=== PATIENT | female | born 1950 | race Hispanic/Latino ===

== ENCOUNTER → 2017-11-08 | Day surgery (SDC) | payer OTHER ==
[2017-11-06 12:05] LABS: BASOPHILS % 0.3 % (0.0-1.0); EOSINOPHILS # (AUTO) 0.2 (0.0-0.4); EOSINOPHILS % 2.9 % (0.0-6.0); HEMATOCRIT 43.5 % (34.2-44.1); HEMOGLOBIN 14.4 g/dL (12.0-16.0); LYMPHOCYTES # (AUTO) 2.4 (1.0-3.2); LYMPHOCYTES % 32.1 % (18.0-39.1); MEAN CORPUSCULAR HEMOGLOBIN 31.6 pg (28-32); MEAN CORPUSCULAR HGB CONC 33.1 g/dL (31-35); MEAN CORPUSCULAR VOLUME 95.6 fL (81-99); MONOCYTES # (AUTO) 0.7 (0.2-0.8); MONOCYTES % 8.8 % (4.4-11.3); NEUTROPHILS # (AUTO) 4.2 (2.1-6.9); NEUTROPHILS % 55.6 % (38.7-80.0); PLATELET COUNT 264 x10e3/uL (140-360); RED BLOOD COUNT 4.55 x10e6/uL (3.6-5.1); RED CELL DISTRIBUTION WIDTH 12.3 % (11.7-14.4)
--- NOTE | 2017-11-06 12:20 | Diagnostic Imaging Report ---
PROCEDURE:CHEST 2 VIEWS TECHNIQUE:PA and lateral views chest INDICATION:Preoperative evaluation for carpal tunnel surgery. COMPARISON:[facility], , CHEST 2 VIEWS, 01/16/2017, 13:08. FINDINGS: Lungs are clear and symmetrically inflated. No pleural effusions. Normal heart size, mediastinal contour and pulmonary vasculature. Intact skeleton. CONCLUSION: No acute abnormality or interval change from December 2016. Dictated by: Prabhu Perry M.D. on 11/06/2017 at 12:29 Electronically approved by: Prabhu Perry M.D. on 11/06/2017 at 12:29
[~2017-11-08] MED LIST: BUPIVACAINE HCL 0.5% INJ 30 ML VIAL INJ ONE; CEFAZOLIN SOD 2 GM/D5W 50ML 50 ML IV ONE; DEXAMETHASONE SOD PHOS INJ 4 MG/ML VIAL ONE; EPHEDRINE SULFATE INJ 50 MG/10 ML SYR ONE; FENTANYL CITRATE/PF 100MCG/2 ML INJ ONE; LIDOCAINE HCL 2% LOCAL INJ 5 ML SDV VIAL INJ ONE; LOSARTAN POTASS25 MG PO; MIDAZOLAM HCL 2 MG/2 ML VIAL ONE; NEXIUM20 MG PO; ONDANSETRON HCL INJ 2 MG/ML VIAL ONE; PROPOFOL IV EMULSION 10 MG/ML 20 ML VIAL ONE; SEVOFLURANE INHAL SOLN 250 ML PEN BTL ONE; SIMVASTATIN20 MG PO; TRAMADOL-ACETAMI1 EA PO; TYLENOL WITH C1 EACH PO; [UNRECOGNIZED DRUG - OTHER] PO
--- OUTSIDE RECORDS SUMMARY | 2017-11-08 05:16 | XMS REPORT ---
[facility] Address Unknown Phone Unavailable Care Team Providers Care Aperture Mask Etcher Name Role Phone ASHWINI RICKS Unavailable Unavailable Problems This patient has no known problems. Allergies, Adverse Reactions, Alerts This patient has no known allergies or adverse reactions. Medications This patient has no known medications. Results Test Description Test Time Test Comments Text Results Atomic Results Result Comments CHEST 2 VIEWS [place] [address] Patient Name: NYA CRONIN MR #: [id number] : 1950 Age/Sex: 67/F Req #: [id number] Adm Physician: Ordered by: ASHWINI RICKS MD Report #: [id number] Location: OR Room/Bed: Procedure: [id number] DX/CHEST 2 VIEWS Exam Date: 11/06/17 Exam Time: 1200 REPORT STATUS: Signed PROCEDURE: CHEST 2 VIEWS TECHNIQUE: PA and lateral views chest INDICATION: Preoperative evaluation for carpal tunnel surgery. COMPARISON: [facility], , CHEST 2 VIEWS, 01/16, 13:08. FINDINGS: Lungs are clear and symmetrically inflated. No pleural effusions. Normal heart size, mediastinal contour and pulmonary vasculature. Intact skeleton. CONCLUSION: No acute abnormality or interval change from December 2016. Dictated by: Watson Perry M.D. on 11/06/2017 at 12:29 Electronically approved by: Watson Perry M.D. on 11/06/2017 at 12:29 Dictated By: WATSON PERRY MD 1229 Transcribed By: MARY JO on 11/06/17 1229 COPY TO: ASHWINI RICKS MD
--- NOTE | 2017-11-08 12:43 | Operative Report ---
DATE OF PROCEDURE: November 08, 2017 PREOPERATIVE DIAGNOSIS: Right carpal tunnel syndrome. POSTOPERATIVE DIAGNOSIS: Right carpal tunnel syndrome. OPERATION/PROCEDURE PERFORMED: Right carpal tunnel release. ANESTHESIA: General endotracheal intubation anesthesia. IV FLUIDS: Per anesthesia record. DESCRIPTION OF PROCEDURE: Ms. Hatch was taken to the operating room and placed in supine position on the operating table. Following induction of general anesthesia as well as endotracheal intubation, the patient's right upper extremity was examined under anesthesia. She was found to have a normal-appearing hand. There were no gross abnormalities. The patient's upper extremity was prepped and draped in standard surgical fashion. The case was begun by creating an incision in the palm of the hand. This incision was carried through the skin only. Blunt dissection was used to deepen this into the level of the transverse carpal ligament. The distal edge of the transverse carpal ligament was identified and a hemostat was placed beneath the transverse carpal ligament. The transverse carpal ligament was then divided in line with the skin incision. The floor of carpal canal was evaluated and found to have no abnormalities. The tourniquet was deflated and hemostasis was obtained prior to closing the wound. The wound was closed in a single layer fashion. Sterile dressings were applied. The patient was then awakened and taken to the postanesthesia care unit in stable condition. Job#: [id number] FAZAL
== END | disposition home or self-care (01) ==
LOC: OR 05:13
PROVIDERS: ATTEND Specialist
DX: G56.01 Carpal tunnel syndrome, right upper limb (principal); I10 Essential (primary) hypertension; E78.5 Hyperlipidemia, unspecified; K21.9 Gastro-esophageal reflux disease without esophagitis; F17.210 Nicotine dependence, cigarettes, uncomplicated; Z01.810 Encounter for preprocedural cardiovascular examination; Z01.812 Encounter for preprocedural laboratory examination; Z01.818 Encounter for other preprocedural examination
CPT/HCPCS: 36415; 64721; 71046; 85025; 93005; J1100; J2001; J2250; J2405

== ENCOUNTER 2019-02-27 13:11 | Emergency (ER) | payer MEDICARE, OTHER ==
[~2019-02-27] VITALS: Ht 152.4 cm; Wt 92.5 kg
[~2019-02-27 13:11] MED LIST changes: -BUPIVACAINE HCL 0.5% INJ 30 ML VIAL INJ ONE; -CEFAZOLIN SOD 2 GM/D5W 50ML 50 ML IV ONE; -DEXAMETHASONE SOD PHOS INJ 4 MG/ML VIAL ONE; -EPHEDRINE SULFATE INJ 50 MG/10 ML SYR ONE; -FENTANYL CITRATE/PF 100MCG/2 ML INJ ONE; -LIDOCAINE HCL 2% LOCAL INJ 5 ML SDV VIAL INJ ONE; -MIDAZOLAM HCL 2 MG/2 ML VIAL ONE; -ONDANSETRON HCL INJ 2 MG/ML VIAL ONE; -PROPOFOL IV EMULSION 10 MG/ML 20 ML VIAL ONE; -SEVOFLURANE INHAL SOLN 250 ML PEN BTL ONE
--- OUTSIDE RECORDS SUMMARY | 2019-02-27 13:14 | XMS REPORT | Clinical Summary ---
Author Author [facility] Address Unknown Phone Unavailable Care Team Providers Care Senior Actuarial Analyst Name Role Phone Jono Wynne MD PCP Allergies No Known Allergies Medications End Date Status Medication Sig Dispensed Refills Start Date Active propranolol (INDERAL) 10 Take 10 mg by 0 MG tablet mouth 3 (three) times a day. Active simvastatin (ZOCOR) 20 MG Take 20 mg by 0 tablet mouth nightly. Active carbidopa-levodopa Take 1 tablet 0 (SINEMET) 25-100 mg per by mouth 3 tablet (three) times a day. Active pantoprazole (PROTONIX) Take 40 mg by 0 40 MG EC tablet mouth daily. Active Problems Not on file Encounters Care Team Description Date Type Specialty Frank Wan MD Biliary cyst (Primary Dx); Abnormal liver diagnostic imaging 06/26/2018 Office Visit Hepatology after 02/26/2018 Social History Date Tobacco Use Types Packs/Day Years Used Current Every Day Smoker Smokeless Tobacco: Never Used Comments: 1 pack a week Alcohol Use Drinks/Week oz/Week Comments Yes social drinker Sex Assigned at Date Recorded Not on file Industry Job Start Date Occupation Not on file Not on file Not on file Travel End Travel History Travel Start No recent travel history available. Last Filed Vital Signs Time Taken Vital Sign Reading 06/26/2018 11:07 AM CDT Blood Pressure 119/62 06/26/2018 11:07 AM CDT Pulse 67 06/26/2018 11:07 AM CDT Temperature 36.3 C (97.3 F) - Respiratory Rate - 06/26/2018 11:07 AM CDT Oxygen Saturation 96% - Inhaled Oxygen - Concentration 06/26/2018 11:07 AM CDT Weight 89.5 kg (197 lb 6.4 oz) 06/26/2018 11:07 AM CDT Height 154.9 cm (5' 1") 06/26/2018 11:07 AM CDT Body Mass Index 37.3 Plan of Treatment Health Maintenance Due Date Last Done Comments BREAST CANCER SCREENING 2001 COLON CANCER SCREENING 2001 SHINGLES VACCINES (#1) 2001 65+ PNEUMOCOCCAL VACCINE 2016 (1 of 2 - PCV13) PNEUMOCOCCAL 2016 POLYSACCHARIDE VACCINE AGE 65 AND OVER INFLUENZA VACCINE 05/02/2019 Procedures Comments Procedure Name Priority Date/Time Associated Diagnosis CARCINOEMBRYONIC ANTIGEN Routine 06/26/2018 Biliary cyst (CEA) 11:59 AM CDT PROTHROMBIN TIME WITH INR Routine 06/26/2018 Biliary cyst 11:59 AM CDT HEPATITIS C ANTIBODY Routine 06/26/2018 Biliary cyst 11:59 AM CDT HEPATITIS B CORE ANTIBODY Routine 06/26/2018 Biliary cyst TOTAL 11:59 AM CDT GGT Routine 06/26/2018 Biliary cyst 11:59 AM CDT COMPREHENSIVE METABOLIC Routine 06/26/2018 Biliary cyst PANEL 11:59 AM CDT CBC WITH PLATELET AND Routine 06/26/2018 Biliary cyst DIFFERENTIAL 11:59 AM CDT CANCER ANTIGEN 19-9 Routine 06/26/2018 Biliary cyst 11:59 AM CDT BILE ACIDS, TOTAL Routine 06/26/2018 Biliary cyst 11:59 AM CDT ALPHA FETOPROTEIN Routine 06/26/2018 Biliary cyst 11:59 AM CDT after 02/26/2018 Results * Hepatitis C antibody (06/26/2018 11:59 AM CDT) Hepatitis C Ab NON-REACTIVE NON-REACTIVE [facility] [place] Signal/cutoff 0.08 <1.00 [facility] [place] Specimen Blood Resulting Agency Comment Performing Organization Information: Site ID: [id number] Name: [facility] Address: [address] [place] [phone] Director: Elda North Performing Organization Address City/State/Zipcode Phone Number [facility] [address] [place] [address] * Cancer antigen 19-9 (06/26/2018 11:59 AM CDT) [facility] CA 19-9 52 (H) <34 U/mL [facility] Comment: [facility]ICS-[place] This test was performed using ING II the Siemens chemiluminescent method. Values obtained from different assay methods cannot be used interchangeably. CA 19-9 levels, regardless of value, should not be interpreted as absolute evidence of the presence or absence of disease. Specimen Blood Resulting Agency Comment Performing Organization Information: Site ID: [id number] [facility]: [facility] Address: [address] [place] [phone] Director: Dr. Frank Baires Performing Organization Address [facility] Cent[facility]ode Phone Number [facility] [address] II * Bile acids, total (06/26/2018 11:59 AM CDT) [facility] Bile acids, 10 0 - 19 umol/L [facility] total DIAGNOSTICS/[place]SE [place] Specimen Blood Resulting Agency Comment Performing Organization Information: Site ID: AMD Name: [facility] Address: [address] [place] [phone] Director: Biju Balderas M.D.,PhD Performing Organization Address [facility]/Zipcode Phone Number [facility] [address] [place] [address] [place] * Alpha fetoprotein (06/26/2018 11:59 AM CDT) [facility] Alpha 4.0 ng/mL [facility] fetoprotein Comment: [facility] Reference Range: <6.1 ING II The use of AFP as a tumor marker in females is not recommended. This test was performed using the Annika Candia chemiluminescent method. Values obtained from different assay methods cannot be used interchangeably. AFP levels, regardless of value, should not be interpreted as absolute evidence of the presence or absence of disease. Specimen Blood Resulting Agency Comment Performing Organization Information: Site ID: IG [facility]: [facility] Address: [address] [place] [phone] Director: Dr. Frank Baires Performing Organization Address City/[facility]/Zipcode Phone Number [employer] [facility] [address] [place] [address] II * Hepatitis B core antibody total (06/26/2018 11:59 AM CDT) Pathologist [facility] Hepatitis B NON-REACTIVE NON-REACTIVE [facility] core total Ab [facility] [place] Specimen Blood Resulting Agency Comment Performing Organization Information: Site ID: A Name: [facility] Address: [address] [place] [phone] Director: Elda North Performing Organization Address [facility] Centercode Phone Number [facility] [address] [address] * Prothrombin time with INR (06/26/2018 11:59 AM CDT) [facility] INR 1.0 [facility] Comment: DIAGNOSTICS Reference [place] Range 0.9-1.1 Moderate-intensity Warfarin Therapy 2.0-3.0 Higher-intensity Warfarin Therapy 3.0-4.0 Prothrombin 10.1 9.0 - 11.5 sec [facility] time Comment: DIAGNOSTICS For more information on this [place] test, go to: http://education.[employer]/faq/RRQ054 Specimen Blood Resulting Agency Comment Performing Organization Information: Site ID: Christine Name: [facility] Address: [address] [place] [phone] Director: Elda North Performing Organization Address [facility] [facility] Centercode Phone Number [facility] [address] [address] * CBC with platelet and differential (06/26/2018 11:59 AM CDT) [facility] WBC 8.3 3.8 - 10.8 [facility] Thousand/uL [facility] [place] RBC 4.61 3.80 - 5.10 [facility] Million/uL [facility] [place] HGB 14.6 11.7 - 15.5 g/dL [facility] [place] HCT 43.7 35.0 - 45.0 % [facility] MCV 94.8 80.0 - 100.0 fL [facility] [place] MCH 31.7 27.0 - 33.0 pg [facility] [place] MCHC 33.4 32.0 - 36.0 g/dL [facility] [place] RDW 12.6 11.0 - 15.0 % [facility] [place] Platelet count 296 140 - 400 [facility] Thousand/uL [facility] MPV 12.0 7.5 - 12.5 fL [facility] [place] Neutrophils, 5,378 1,500 - 7,800 [facility] absolute cells/uL [facility] [place] Lymphocytes, 2,017 850 - 3,900 cells/uL [facility] absolute [facility] [place] Monocytes, 747 200 - 950 cells/uL [facility] absolute [facility] [place] Eosinophils, 116 15 - 500 cells/uL [facility] absolute [facility] [place] Basophils, 42 0 - 200 cells/uL [facility] absolute [facility] [place] Neutrophils 64.8 % [facility] [place] Lymphocytes 24.3 % [facility] [place] Monocytes 9.0 % [facility] [place] Eosinophils 1.4 % [facility] [place] Basophils + RC 0.5 % [facility] [place] Specimen Blood Resulting Agency Comment Performing Organization Information: Site ID: [id number] Name: [facility] Address: [address] [place], [place] [phone] Director: Elda North Performing Organization Address [facility] [facility] Centercowi Phone Number [place] [address] * GGT (06/26/2018 11:59 AM CDT) GGT 47 3 - 65 U/L [facility] Specimen Blood Resulting Agency Comment Performing Organization Information: Site ID: ESTELA Name: [facility] Address: [address] [place] [phone] Director: Elda North Performing Organization Address [facility] [facility] Centercowi Phone Number [place] [address] * Carcinoembryonic antigen (CEA) (06/26/2018 11:59 AM CDT) CEA 3.1 (H) See Note: ng/mL [facility] Comment: DIAGNOSTICS Reference Range: [place] Non-Smoker: <2.5 Smoker: <5.0 This test was performed using the Siemens chemiluminescent method. Values obtained from different assay methods cannot be used interchangeably. CEA levels, regardless of value, should not be interpreted as absolute evidence of the presence or absence of disease. Specimen Blood Resulting Agency Comment Performing Organization Information: Site ID: [id number] Name: [facility] Address: [address] [place] [phone] Director: Elda North Performing Organization Address [facility]/Zipcode Phone Number [facility] [place] [address] [place] [address] * Comprehensive metabolic panel (06/26/2018 11:59 AM CDT) [facility] Glucose 87 65 - 99 mg/dL [facility] Comment: DIAGNOSTICS Fasting [place] reference interval BUN, whole 14 7 - 25 mg/dL [facility] blood [facility] [place] Creatinine 0.69 0.50 - 0.99 mg/dL [facility] Comment: DIAGNOSTICS For patients >49 years of age, [place] the reference limit for Creatinine is approximately 13% higher for people identified as -Icelandic. EGFR Non-Afr. 90 > OR=60 [facility] Icelandic mL/min/1.73m2 [facility] [place] EGFR 104 > OR=60 [facility] Icelandic mL/min/1.73m2 [facility] [place] BUN/creatinine NOT APPLICABLE 6 - 22 (calc) [facility] ratio [facility] [place] Sodium 141 135 - 146 mmol/L [facility] [place] Potassium 4.7 3.5 - 5.3 mmol/L [facility] [place] Chloride 104 98 - 110 mmol/L [facility] [place] CO2 28 20 - 32 mmol/L [facility] [place] Calcium 9.7 8.6 - 10.4 mg/dL [facility] [place] Protein 7.1 6.1 - 8.1 g/dL [facility] [place] Albumin, S 4.3 3.6 - 5.1 g/dL [facility] [place] Globulin, total 2.8 1.9 - 3.7 g/dL [facility] (calc) [facility]ST[facility] [place] Albumin/globuli 1.5 1.0 - 2.5 (calc) [facility] n ratio [facility] [place] Total bilirubin 0.4 0.2 - 1.2 mg/dL [facility] [place] Alkaline 86 33 - 130 U/L [facility] phosphatase [facility] [place] AST 16 10 - 35 U/L [facility] [place] ALT 11 6 - 29 U/L [facility] [place] Specimen Blood Resulting Agency Comment Performing Organization Information: Site ID: RGA Name: [facility] Address: [address] [place] [phone] Director: Elda North Performing Organization Address [facility]/Zipcode Phone Number [facility] [address] [address] after 02/26/2018 Insurance Type Payer Benefit Subscriber ID Effective Phone Address Plan / Dates Group HMO TEXEMIL[employer]APLUS JENNIFERPLUS xxxxxxxxx 2017-Ishan escobedo Advance Directives Patient has advance care planning documents on file. For more information, balta youngblood contact: Masood Holt [address] [place] [address]
--- NOTE | 2019-02-27 14:15 | Diagnostic Imaging Report ---
EXAMINATION: PA and lateral views of the chest. COMPARISON: None CLINICAL HISTORY: Cough, shortness of breath DISCUSSION: Lungs are well-inflated and without focal airspace consolidation, pleural effusion, or pneumothorax. Opacity along the cardiac apex likely reflects prominent epicardial fat. Atherosclerotic calcification of the thoracic aorta. Normal heart size. No pulmonary edema. No acute osseous abnormality. IMPRESSION: No acute cardiopulmonary abnormalities. Signed by: Dr. Andrea Vazquez M.D. on 02/27/2019 2:12 PM
[2019-02-27 16:09] LABS: BASOPHILS % 0.2 % (0.0-1.0); EOSINOPHILS # (AUTO) 0.2 (0.0-0.4); EOSINOPHILS % 1.6 % (0.0-6.0); HEMATOCRIT 44.8 % (34.2-44.1); HEMOGLOBIN 14.3 g/dL (12.0-16.0); LYMPHOCYTES # (AUTO) 1.9 (1.0-3.2); LYMPHOCYTES % 20.8 % (18.0-39.1); MEAN CORPUSCULAR HGB CONC 31.9 g/dL (31-35); MONOCYTES % 10.7 % (4.4-11.3); NEUTROPHILS # (AUTO) 6.1 (2.1-6.9); NEUTROPHILS % 66.4 % (38.7-80.0); PLATELET COUNT 284 x10e3/uL (140-360); RED BLOOD COUNT 4.62 x10e6/uL (3.6-5.1); RED CELL DISTRIBUTION WIDTH 12.8 % (11.7-14.4)
[2019-02-27 16:32] LABS: ALANINE AMINOTRANSFERASE 12 IU/L (0-55); ALBUMIN 3.7 g/dL (3.5-5.0); ALBUMIN/GLOBULIN RATIO 1.1 (0.8-2.0); ALKALINE PHOSPHATASE 93 IU/L (40-150); ANION GAP 10.9 mmol/L (8-16); BLOOD UREA NITROGEN 16 mg/dL (7-26); BUN/CREATININE RATIO 21 (6-25); CALCIUM 9.7 mg/dL (8.4-10.2); CARBON DIOXIDE 27 mmol/L (22-29); CHLORIDE 101 mmol/L (98-107); CREATINE KINASE 54 IU/L (29-168); CREATININE, SERUM 0.77 mg/dL (0.57-1.11); EST GLOMERULAR FILTRATION RATE > 60 ML/MIN (60-); GLUCOSE 84 mg/dL (74-118); POTASSIUM 3.9 mmol/L (3.5-5.1); SODIUM 135 mmol/L (136-145)
--- NOTE | 2019-02-27 18:31 | Diagnostic Imaging Report ---
EXAM: CT Chest WITH contrast 02/27/2019 3:14 PM INDICATION: ^PE PROTOCOL ^[id number] ^[id number] ^Y COMPARISON: Chest radiograph 02/27/2019 TECHNIQUE: Spiral CT images of the chest were performed from the lung apices through the level of the adrenal glands after the IV contrast administration. Thin section reconstructions were obtained with special concentration on the pulmonary arteries. IV CONTRAST: 100 mL of Isovue-370 ORAL CONTRAST: None COMPLICATIONS: None RADIATION DOSE: Total DLP: 483.5 mGy*cm Estimated effective dose: (DLP x 0.015 x size factor) mSv CTDIvol has been reviewed. It is below the limits set by the Radiation Protocol Committee (RPC). FINDINGS: LINES/ TUBES: None. PULMONARY ARTERIES: No filling defects are identified in the main, right or left pulmonary arteries to their segmental and subsegmental levels, to suggest pulmonary embolism. The main pulmonary artery is normal in size. LUNGS AND AIRWAYS: 3 mm pleural-based nodule in the anterior right upper lobe on series 3, image 31. Small cluster of 2 to 3 mm faint centrilobular pulmonary nodules in the right upper lobe on image 35. Patchy areas of groundglass opacity mainly in the perihilar region are suggestive of edema. No lobar consolidation, septal thickening, honeycombing. Linear scarring in the lingula and right middle lobe. Airways are normal. No bronchiectasis. PLEURA: The pleural spaces are clear. HEART AND MEDIASTINUM: The thyroid gland is normal. No mediastinal, hilar or axillary lymphadenopathy. The heart is normal in size. There is no pericardial effusion. The thoracic aorta is normal in size associated with mild atherosclerotic calcifications. UPPER ABDOMEN: Hepatic steatosis. BONES: Mild degenerative changes of the thoracic spine. SOFT TISSUES: Unremarkable. IMPRESSION: No pulmonary embolism. Faint small cluster of centrilobular nodules in the right upper lobe suggestive of small infection in the proper clinical setting. Mild bilateral pulmonary edema. Signed by: Dr. Liliya Sepulveda M.D. on 02/27/2019 6:28 PM
[2019-02-27] MEDS ORDERED: LEVAQUIN500 MG PO (18:53)
[2019-02-27 19:17] VITALS: BP 121/75
[2019-02-27] MEDS ORDERED: IOPAMIDOL 370 MG/ML 200 ML INFUS..BTL INJ ONE (22:16)
[2019-02-27] MEDS ORDERED: SODIUM CHLORIDE 0.9% 50ML 50 ML ONE (22:16)
== END 2019-02-27 19:15 | disposition home or self-care (01) ==
LOC: ER 13:11
DX: R06.09 Other forms of dyspnea (principal); R05 Cough
CPT/HCPCS: 36415; 71046; 71260; 80053; 82550; 82553; 83880; 84484; 85025; 99284; Q9967

== ENCOUNTER 2019-03-24 08:19 | Observation (INO) | payer OTHER ==
[~2019-03-24] VITALS: Ht 154.9 cm; Wt 94.4 kg
[~2019-03-24 08:19] MED LIST changes: +LEVAQUIN500 MG PO
--- OUTSIDE RECORDS SUMMARY | 2019-03-24 08:23 | XMS REPORT | Clinical Summary ---
Author Author [facility] Organization [facility] Address Unknown Phone Unavailable Care Team Providers Care Foundry Engineer Name Role Phone Jono Wynne MD PCP [...] diagnostic imaging 06/26/2018 Office Visit Hepatology after 03/23/2018 Social History Date Tobacco Use Types Packs/Day [...] Last Done Comments BREAST CANCER SCREENING 2001 COLONOSCOPY SCREENING 2001 SHINGLES VACCINES (#1) 2001 65+ PNEUMOCOCCAL VACCINE 2016 (1 of 2 - PCV13) INFLUENZA VACCINE 05/02/2019 Procedures Comments Procedure Name [...] 06/26/2018 Biliary cyst 11:59 AM CDT after 03/23/2018 Results * Hepatitis C antibody (06/26/2018 11:59 AM CDT) Hepatitis C Ab NON-REACTIVE NON-REACTIVE [facility] [place] Signal/cutoff 0.08 <1.00 [facility] [place] Specimen Blood Resulting Agency Comment Performing Organization Information: Site ID: RGA Name: [facility] Lab Address: [address] [place] [phone] Director: Elda North Performing Organization Address City/State/Zipcode Phone Number [facility] [address] [address] [phone] * Cancer antigen 19-9 (06/26/2018 11:59 AM CDT) Pathologist [facility] CA 19-9 52 (H) <34 U/mL [facility] Comment: DIAGNOSTICS-[place]AT[place] This test was performed using ING II the Siemens chemiluminescent method. Values obtained from different assay methods cannot be used interchangeably. CA 19-9 levels, regardless of value, should not be interpreted as absolute evidence of the presence or absence of disease. Specimen Blood Resulting Agency Comment Performing Organization Information: Site ID: IG Name: [facility] Lab Address: [address] [place] [phone] Director: Dr. Frank Baires Performing Organization Address [facility]/Zipcode Phone Number [facility] [address] II * Bile acids, total (06/26/2018 11:59 AM CDT) [facility] Bile acids, 10 0 - 19 umol/L [facility] total DIAGNOSTICS/[facility] Specimen Blood Resulting Agency Comment Performing Organization Information: Site ID: AMD Name: [facility] Address: [address] [place] [phone] Director: Biju Balderas M.D.,PhD Performing Organization Address [facility] Mex[facility]ode Phone Number [facility] [address] [place] [address] [place] * Alpha fetoprotein (06/26/2018 11:59 AM CDT) [facility] Alpha 4.0 ng/mL [facility] fetoprotein Comment: DIAGNOSTICS-TATO Reference Range: <6.1 ING II The use of AFP as a tumor marker in females is not recommended. This test was performed using the Annika Richelle chemiluminescent method. Values obtained from different assay methods cannot be used interchangeably. AFP levels, regardless of value, should not be interpreted as absolute evidence of the presence or absence of disease. Specimen Blood Resulting Agency Comment Performing Organization Information: Site ID: IG Name: [facility] Lab Address: [address] [place] [phone] Director: Dr. Frank Baires Performing Organization Address City/State/[facility] Mex[facility]ode Phone Number [facility] [employer] [facility] [address] [place] [address] II * Hepatitis B core antibody total (06/26/2018 11:59 AM CDT) [facility] Hepatitis B NON-REACTIVE NON-REACTIVE [facility] core total Ab DIAGNOSTICS [place] Specimen Blood Resulting Agency Comment Performing Organization Information: Site ID: A Name: [facility] Address: [address] [place] [phone] Director: Elda North Performing Organization Address City/[facility] Mex[facility]ocode Phone Number [facility] [address] [address] * Prothrombin time with INR (06/26/2018 11:59 AM CDT) [facility] INR 1.0 [facility] Comment: DIAGNOSTICS Reference [place] Range 0.9-1.1 Moderate-intensity Warfarin Therapy 2.0-3.0 Higher-intensity Warfarin Therapy 3.0-4.0 Prothrombin 10.1 9.0 - 11.5 sec [facility] time Comment: DIAGNOSTICS For more information on this [place] test, go to: http://education.Attivio/faq/SQW638 Specimen Blood Resulting Agency Comment Performing Organization Information: Site ID: [facility] Name: [facility] Lab Address: [address] [place] [phone] Director: Elda North Performing Organization Address [facility] Mex[facility]ocode Phone Number [facility] [address] [address] * CBC with platelet and differential (06/26/2018 11:59 AM CDT) [facility] WBC 8.3 3.8 - 10.8 [facility] Thousand/uL DIAGNOSTICS [place] RBC 4.61 3.80 - 5.10 [facility] Million/uL DIAGNOSTICS [place] HGB 14.6 11.7 - 15.5 g/dL [facility] [email or web address] [place] HCT 43.7 35.0 - 45.0 % [facility] [email or web address] [place] MCV 94.8 80.0 - 100.0 fL [facility] MCH 31.7 27.0 - 33.0 pg [facility] [email or web address] [place] MCHC 33.4 32.0 - 36.0 g/dL [facility] [place] RDW 12.6 11.0 - 15.0 % [employer] DIAGNOSTICS [place] Platelet count 296 140 - 400 [facility] Thousand/uL [facility] MPV 12.0 7.5 - 12.5 fL [facility] DIAGNOSTICS [place] Neutrophils, 5,378 1,500 - 7,800 [facility] absolute cells/uL DIAGNOSTICS [place] Lymphocytes, 2,017 850 - 3,900 cells/uL [facility] absolute DIAGNOSTICS [place] Monocytes, 747 200 - 950 cells/uL [facility] absolute DIAGNOSTICS [place] Eosinophils, 116 15 - 500 cells/uL [facility] absolute DIAGNOSTICS [place] Basophils, 42 0 - 200 cells/uL [facility] absolute DIAGNOSTICS [place] Neutrophils 64.8 % [facility] [place] Lymphocytes 24.3 % [facility] [place] Monocytes 9.0 % [facility] [place] Eosinophils 1.4 % [facility] [email or web address] [place] Basophils + RC 0.5 % [facility] [email or web address] [place] Specimen Blood Resulting Agency Comment Performing Organization Information: Site ID: ESTELA Name: [facility] Address: [address] [place] [phone] Director: Elda North Performing Organization Address [facility] Mex[facility]ode Phone Number [facility] [place] [address] * GGT (06/26/2018 11:59 AM CDT) GGT 47 3 - 65 U/L [facility] [place] Specimen Blood Resulting Agency Comment Performing Organization Information: Site ID: ESTELA Name: [facility] Address: [address] [place] [phone] Director: Elda North Performing Organization Address [facility] Mex[facility]ocovt Phone Number [facility] [place] [address] * Carcinoembryonic antigen (CEA) (06/26/2018 11:59 AM CDT) CEA 3.1 (H) See Note: ng/mL [facility] Comment: DIAGNOSTICS Reference Range: [place] Non-Smoker: <2.5 Smoker: <5.0 This test was performed using the Siemens chemiluminescent method. Values obtained from different assay methods cannot be used interchangeably. CEA levels, regardless of value, should not be interpreted as absolute evidence of the presence or absence of disease. Specimen Blood Resulting Agency Comment Performing Organization Information: Site ID: ESTELA Name: [facility] Lab Address: [address] [place] [phone] Director: Elda North Performing Organization Address [facility]/Zipcode Phone Number [facility] [place] [address] [place] [address] * Comprehensive metabolic panel (06/26/2018 11:59 AM CDT) [facility] Glucose 87 65 - 99 mg/dL [facility] Comment: DIAGNOSTICS Fasting [place] reference interval BUN, whole 14 7 - 25 mg/dL [facility] blood DIAGNOSTICS [place] Creatinine 0.69 0.50 - 0.99 mg/dL [facility] Comment: DIAGNOSTICS For patients >49 years of age, [place] the reference limit for Creatinine is approximately 13% higher for people identified as -Filipino. EGFR Non-Afr. 90 > OR=60 [facility] Filipino mL/min/1.73m2 DIAGNOSTICS [place] EGFR 104 > OR=60 [facility] Filipino mL/min/1.73m2 DIAGNOSTICS [place] BUN/creatinine NOT APPLICABLE (calc) [facility] ratio DIAGNOSTICS [place] Sodium 141 135 - 146 mmol/L [facility]ST[facility] [place] Potassium 4.7 3.5 - 5.3 mmol/L [facility] [place] Chloride 104 98 - 110 mmol/L [facility] [place] CO2 28 20 - 32 mmol/L [facility] [place] Calcium 9.7 8.6 - 10.4 mg/dL [facility] [place] Protein 7.1 6.1 - 8.1 g/dL [facility] [place] Albumin, S 4.3 3.6 - 5.1 g/dL [facility] [place] Globulin, total 2.8 1.9 - 3.7 g/dL [facility] (calc) DIAGNOSTICS [place] Albumin/globuli 1.5 1.0 - 2.5 (calc) [facility] n ratio DIAGNOSTICS [place] Total bilirubin 0.4 0.2 - 1.2 mg/dL [facility]ST[facility] [place] Alkaline 86 33 - 130 U/L [facility] phosphatase DIAGNOSTICS [place] AST 16 10 - 35 U/L [facility]ST[facility] [place] ALT 11 6 - 29 U/L [facility] [place] Specimen Blood Resulting Agency Comment Performing Organization Information: Site ID: RGA Name: [facility] Lab Address: [address] [place] [address] Director: Elda North Performing Organization Address City/[facility]/Zipcode Phone Number [facility] [place] [address] [place] [address] after 03/23/2018 Insurance Type Payer Benefit Subscriber ID Effective Phone Address Plan / Dates Group HMO TEXEMILIAPLUS TEXEMILIAPLUS xxxxxxxxx 2017-P OTTONIEL escobedo Advance Directives Patient has advance care planning documents on file. For more information, balta youngblood contact: Masood Holt [address] [place] [address]
[2019-03-24] MEDS ORDERED: ALBUTEROL/IPRATROPIUM 3 ML NEB ONE (08:56)
[2019-03-24] MEDS ORDERED: ALBUTEROL/IPRATROPIUM 3 ML NEB NEB ONE ×2 (09:00→10:30)
[2019-03-24 09:20] LABS: BASOPHILS % 0.1 % (0.0-1.0); EOSINOPHILS # (AUTO) 0.1 (0.0-0.4); EOSINOPHILS % 0.7 % (0.0-6.0); HEMATOCRIT 42.6 % (34.2-44.1); HEMOGLOBIN 14.4 g/dL (12.0-16.0); LYMPHOCYTES # (AUTO) 1.3 (1.0-3.2); MEAN CORPUSCULAR HEMOGLOBIN 31.9 pg (28-32); MEAN CORPUSCULAR HGB CONC 33.8 g/dL (31-35); MEAN CORPUSCULAR VOLUME 94.5 fL (81-99); MONOCYTES # (AUTO) 0.8 (0.2-0.8); MONOCYTES % 6.1 % (4.4-11.3); NEUTROPHILS # (AUTO) 11.1 (2.1-6.9); NEUTROPHILS % 82.9 % (38.7-80.0); PLATELET COUNT 247 x10e3/uL (140-360); RED BLOOD COUNT 4.51 x10e6/uL (3.6-5.1); RED CELL DISTRIBUTION WIDTH 12.6 % (11.7-14.4)
[2019-03-24] MEDS ORDERED: METHYLPREDNISOLONE SOD SUCC 125 MG/2ML VIAL IV ONE (09:30)
[2019-03-24 09:33] LABS: ANION GAP 13.7 mmol/L (8-16); BLOOD UREA NITROGEN 10 mg/dL (7-26); BUN/CREATININE RATIO 14 (6-25); CALCIUM 9.6 mg/dL (8.4-10.2); CARBON DIOXIDE 26 mmol/L (22-29); CHLORIDE 103 mmol/L (98-107); CREATININE, SERUM 0.72 mg/dL (0.57-1.11); EST GLOMERULAR FILTRATION RATE > 60 ML/MIN (60-); GLUCOSE 118 mg/dL (74-118); POTASSIUM 3.7 mmol/L (3.5-5.1); SODIUM 139 mmol/L (136-145)
--- NOTE | 2019-03-24 10:09 | NUR ---
NOTIFIED RT OF PEREZ.
--- NOTE | 2019-03-24 10:41 | Diagnostic Imaging Report ---
EXAMINATION: PA and lateral views of the chest. COMPARISON: CT chest with contrast 02/27/2019 CLINICAL HISTORY: Shortness of breath and cough DISCUSSION: Lines/tubes: None. Lungs: The lungs are well inflated. Mild atelectatic changes in the right lower lung. There is no evidence of pneumonia or pulmonary edema. Pleura: There is no pleural effusion or pneumothorax. Heart and mediastinum: Cardiomediastinal silhouette is unremarkable. Pulmonary vasculature is normal. Bones and soft tissues: No acute bony abnormalities. Mild age-appropriate degenerative changes in the thoracic spine IMPRESSION: Mild atelectatic changes in the right lower lung. No consolidation or effusion. Signed by: Dr. Manav Garnica M.D. on 03/24/2019 10:38 AM
[2019-03-24] MEDS ORDERED: SODIUM CHLORIDE FLUSH 10 ML SYR INJ PRN (11:15)
[2019-03-24] MEDS ORDERED: ENALAPRILAT IV INJ 1.25 MG/ML VIAL IV PRN (11:15)
[2019-03-24] MEDS ORDERED: ASPIRIN 81 MG CHEW TAB PO ONE (11:15)
[2019-03-24] MEDS ORDERED: SIMETHICONE 80 MG CHEW PO PRN (11:15)
[2019-03-24] MEDS: DOXYCYCLINE HYCLATE TABLET 100 MG TAB PO SCH (11:27)
--- OUTSIDE RECORDS SUMMARY | 2019-03-24 11:27 | XMS REPORT | Clinical Summary ---
Author Author [place] [facility] Organization [facility] [facility] Address Unknown Phone Unavailable Care Team Providers Care Acquisition Consultant Name Role Phone Jono Wynne MD PCP [...] AM CDT) Hepatitis C Ab NON-REACTIVE NON-REACTIVE [facility] [place] [place] Signal/cutoff 0.08 <1.00 [facility] [place] [place] Specimen Blood Resulting Agency Comment Performing Organization Information: Site ID: RGA Name: [facility] Address: [address] [place] [phone] Director: Elda North Performing Organization Address City/State/Zipcode Phone Number [facility] [address] [address] [phone] * Cancer antigen 19-9 (06/26/2018 11:59 AM CDT) Pathologist [facility] [place] 19-9 52 (H) <34 U/mL [facility] Comment: DIAGNOSTICS-[facility] This test was performed using ING II the Siemens chemiluminescent method. Values obtained from different assay methods cannot be used interchangeably. [place] 19-9 levels, regardless of value, should not be interpreted as absolute evidence of the presence or absence of disease. Specimen Blood Resulting Agency Comment Performing Organization Information: Site ID: IG [facility]: [facility] Address: [address] [place] [phone] Director: Dr. Frank Baires Performing Organization Address [facility]/Zipcode Phone Number [facility] [address] II * Bile acids, total (06/26/2018 11:59 AM CDT) [facility] Bile acids, 10 0 - 19 umol/L [facility] total DIAGNOSTICS/[facility] Specimen Blood Resulting Agency Comment Performing Organization Information: Site ID: AMD Name: [facility] Address: [address] [place] [phone] Director: Biju Balderas M.D.,PhD Performing Organization Address [facility] Centercode Phone Number [facility] [address] [place] [address] PRIDE * Alpha fetoprotein (06/26/2018 11:59 AM CDT) [facility] Alpha 4.0 ng/mL [facility] fetoprotein Comment: DIAGNOSTICS-[facility] [...] Performing Organization Information: Site ID: IG Name: [facility] Address: [address] [place] [phone] Director: Dr. Frank Baires Performing Organization Address City/State/[facility] Centercode Phone Number [facility] [employer] [facility] [address] [place] [address] II * Hepatitis B core antibody total (06/26/2018 11:59 AM CDT) [facility] Hepatitis B NON-REACTIVE NON-REACTIVE [facility] core total Ab [facility] [place] Specimen Blood Resulting Agency Comment Performing Organization Information: Site ID: A Name: [facility] Address: [address] [place] [phone] Director: Elda North Performing Organization Address City/[facility] Centercode Phone Number [facility] [address] [address] * Prothrombin time with INR (06/26/2018 11:59 AM CDT) [facility] INR 1.0 [facility] Comment: DIAGNOSTICS Reference [place] Range 0.9-1.1 Moderate-intensity Warfarin Therapy 2.0-3.0 Higher-intensity Warfarin Therapy 3.0-4.0 Prothrombin 10.1 9.0 - 11.5 sec [facility] time Comment: DIAGNOSTICS For more information on this [place] test, go to: http://education.Andigilog/faq/TXT122 Specimen Blood Resulting Agency Comment Performing Organization Information: Site ID: [facility] Name: [facility] Lab Address: [address] [place] [phone] Director: Elda North Performing Organization Address [facility] Centercode Phone Number [facility] [address] [address] * CBC with platelet and differential (06/26/2018 11:59 AM CDT) [facility] WBC 8.3 3.8 - 10.8 [facility] Thousand/uL [facility]STICS [place] RBC 4.61 3.80 - 5.10 [facility] Million/uL [facility]STICS [place] HGB 14.6 11.7 - 15.5 g/dL [facility] [employer] [place] HCT 43.7 35.0 - 45.0 % [facility] [employer] [place] MCV 94.8 80.0 - 100.0 fL [facility] MCH 31.7 27.0 - 33.0 pg [facility] [employer] [place] MCHC 33.4 32.0 - 36.0 g/dL [facility] [place] RDW 12.6 11.0 - 15.0 % [employer] [facility]STICS [place] Platelet count 296 140 - 400 [facility] Thousand/uL [facility] MPV 12.0 7.5 - 12.5 fL [facility] [place] Neutrophils, 5,378 1,500 - 7,800 [facility] absolute cells/uL [facility] [place] Lymphocytes, 2,017 850 - 3,900 cells/uL [facility] absolute [facility] [place] Monocytes, 747 200 - 950 cells/uL [facility] absolute [facility] [place] Eosinophils, 116 15 - 500 cells/uL [facility] absolute [facility] [place] Basophils, 42 0 - 200 cells/uL [facility] absolute [facility] [place] Neutrophils 64.8 % [facility] [place] Lymphocytes 24.3 % [facility] [place] Monocytes 9.0 % [facility] [place] Eosinophils 1.4 % [facility] [employer] [place] Basophils + RC 0.5 % [facility] [employer] [place] Specimen Blood Resulting Agency Comment Performing Organization Information: Site ID: ESTELA Name: [facility] Address: [address] [place] [phone] Director: Elda North Performing Organization Address [facility] Centercode Phone Number [facility] [place] [address] * GGT (06/26/2018 11:59 AM CDT) GGT 47 3 - 65 U/L [facility] [place] [place] Specimen Blood Resulting Agency Comment Performing Organization Information: Site ID: ESTELA Name: [facility] Address: [address] [place] [phone] Director: Elda North Performing Organization Address [facility] Centercook Phone Number [facility] [place] [address] * Carcinoembryonic antigen (CEA) (06/26/2018 11:59 AM CDT) CEA 3.1 (H) See Note: ng/mL [facility] Comment: DIAGNOSTICS Reference Range: [place] Non-Smoker: <2.5 Smoker: <5.0 This test was performed using the Siemens chemiluminescent method. Values obtained from different assay methods cannot be used interchangeably. CEA levels, regardless of value, should not be interpreted as absolute evidence of the presence or absence of disease. Specimen Blood Resulting Agency Comment Performing Organization Information: Site ID: ESTELA Name: [facility] Lab Address: [address] [place] [phone] Director: Elda North Performing Organization Address [facility]/Zipcode Phone Number [facility] [place] [address] [place] [address] * Comprehensive metabolic panel (06/26/2018 11:59 AM CDT) [facility] Glucose 87 65 - 99 mg/dL [facility] Comment: DIAGNOSTICS Fasting [place] reference interval BUN, whole 14 7 - 25 mg/dL [facility] blood [facility]STICS [place] Creatinine 0.69 0.50 - 0.99 mg/dL [facility] Comment: DIAGNOSTICS For patients >49 years of age, [place] the reference limit for Creatinine is approximately 13% higher for people identified as -Croatian. EGFR Non-Afr. 90 > OR=60 [facility] [place]ian mL/min/1.73m2 [facility] [place] EGFR 104 > OR=60 [facility] Croatian mL/min/1.73m2 [facility] [place] BUN/creatinine NOT APPLICABLE (calc) [facility] ratio [facility] [place] Sodium 141 135 - 146 mmol/L [facility] [place] Potassium 4.7 3.5 - 5.3 mmol/L [facility] [place] Chloride 104 98 - 110 mmol/L [facility] [place] CO2 28 20 - 32 mmol/L [facility] [place] Calcium 9.7 8.6 - 10.4 mg/dL [facility] [place] Protein 7.1 6.1 - 8.1 g/dL [facility] [place] Albumin, S 4.3 3.6 - 5.1 g/dL [facility] [place] Globulin, total 2.8 1.9 - 3.7 g/dL [facility] (calc) [facility] [place] Albumin/globuli 1.5 1.0 - 2.5 (calc) [facility] n ratio [facility] [place] Total bilirubin 0.4 0.2 - 1.2 mg/dL [facility] [place] Alkaline 86 33 - 130 U/L [facility] phosphatase [facility] [place] AST 16 10 - 35 U/L [facility] [place] ALT 11 6 - 29 U/L [facility] [place] Specimen Blood Resulting Agency Comment Performing Organization Information: Site ID: RGA Name: [facility] Lab Address: [address] [place] [address] Director: Elda North Performing Organization Address City/[facility]/Zipcode Phone Number [facility] [place] [address] [place] [address] after 03/23/2018 Insurance Type Payer Benefit Subscriber ID Effective Phone Address Plan / Dates Group HMO TEXEMILIAPLUS TEXEMILIAPLUS xxxxxxxxx 2017-P OTTONIEL escobedo Advance Directives Patient has advance care planning documents on file. For more information, balta youngblood contact: Masood Holt [address] [place] [address]
--- NOTE | 2019-03-24 12:00 | NUR ---
ACCEPTING RN INQUIRED TO POSSIBLE TB OR IF PT STABLE FOR FLOOR STATUS AND IF BIPAP NEEDED, CHECKED WITH ER PHYSICAN REGARDING BOTH AND STATES PT OK FOR FLOOR ADMISSION AND NO BIPAP IS REQUIRED FOR PT AT THIS TIME. PT BREATHING BETTER THAN ON ARRIVAL AND RATE FROM 26 DOWN TO 20 AND BREATHING MORE COMFORTABLLY AT PRESENT. SATS 97 ON NC AT 2 LPM.
[2019-03-24 12:15] LABS: CREATINE KINASE MB 1.7 ng/mL (0-5.0)
[2019-03-24 12:30] VITALS: BP 146/65
[2019-03-24] MEDS ORDERED: PROPRANOLOL HCL10 MG PO (13:49)
[2019-03-24] MEDS ORDERED: PANTOPRAZOLE SO40 MG PO (13:49)
[2019-03-24] MEDS ORDERED: SINEMET 25-1001 EACH PO (13:49)
[2019-03-24 14:12] VITALS: BP 146/65
[2019-03-24] MEDS ORDERED: PNEUMOCOCCAL VACCINE POLYVALENT 23 MCG/0.5 ML VIAL IM ONE (14:30)
[2019-03-24] MEDS: ALBUTEROL/IPRATROPIUM 3 ML NEB NEB SCH ×3 (15:05→23:20)
[2019-03-24 15:30] VITALS: BP 131/78
[2019-03-24 15:31] VITALS: BP 106/56
[2019-03-24] MEDS: ACETAMINOPHEN 325 MG TAB PO PRN (16:10)
[2019-03-24] MEDS: NICOTINE 7 MG PATCH TOP SCH (16:10)
[2019-03-24] MEDS ORDERED: FAMOTIDINE 20 MG/2 ML VIAL IV SCH (17:00)
[2019-03-24 20:00] VITALS: BP 130/61
[2019-03-24 21:54] LABS: CREATINE KINASE 47 IU/L (29-168)
[2019-03-25] VITALS (8 sets, daily range): BP systolic 12–156; BP diastolic 53–74
[2019-03-25] MEDS: DOXYCYCLINE HYCLATE TABLET 100 MG TAB PO SCH ×2 (00:53→14:59)
[2019-03-25] MEDS: ALBUTEROL/IPRATROPIUM 3 ML NEB NEB SCH ×6 (03:02→23:00)
[2019-03-25 05:57] LABS: BASOPHILS % 0.1 % (0.0-1.0); HEMATOCRIT 37.9 % (34.2-44.1); HEMOGLOBIN 12.8 g/dL (12.0-16.0); LYMPHOCYTES # (AUTO) 1.2 (1.0-3.2); LYMPHOCYTES % 12.5 % (18.0-39.1); MEAN CORPUSCULAR HEMOGLOBIN 32.2 pg (28-32); MEAN CORPUSCULAR HGB CONC 33.8 g/dL (31-35); MEAN CORPUSCULAR VOLUME 95.5 fL (81-99); MONOCYTES # (AUTO) 0.9 (0.2-0.8); MONOCYTES % 8.8 % (4.4-11.3); NEUTROPHILS # (AUTO) 7.8 (2.1-6.9); NEUTROPHILS % 78.3 % (38.7-80.0); PLATELET COUNT 227 x10e3/uL (140-360); RED BLOOD COUNT 3.97 x10e6/uL (3.6-5.1); RED CELL DISTRIBUTION WIDTH 12.8 % (11.7-14.4)
[2019-03-25 06:25] LABS: CREATINE KINASE MB 2.1 ng/mL (0-5.0)
[2019-03-25 06:50] LABS: ANION GAP 14.3 mmol/L (8-16); BLOOD UREA NITROGEN 13 mg/dL (7-26); BUN/CREATININE RATIO 17 (6-25); CALCIUM 9.3 mg/dL (8.4-10.2); CARBON DIOXIDE 24 mmol/L (22-29); CHLORIDE 105 mmol/L (98-107); CREATININE, SERUM 0.75 mg/dL (0.57-1.11); EST GLOMERULAR FILTRATION RATE > 60 ML/MIN (60-); GLUCOSE 121 mg/dL (74-118); POTASSIUM 4.3 mmol/L (3.5-5.1); SODIUM 139 mmol/L (136-145)
--- NOTE | 2019-03-25 07:00 | NUR ---
Walking rounds done and report received. Patient is awake, alert with no complaints voiced. POC explained in Sammarinese per patient preference.[phone], [phone]. She was instructed to call for assistance as needed and verbalized understanding. Bed in lowest position, locked, and call duenas within reach.
[2019-03-25] MEDS: NICOTINE 7 MG PATCH TOP SCH (08:21)
[2019-03-25] MEDS: PREDNISONE 20 MG TAB PO SCH (08:21)
[2019-03-25] MEDS: ACETAMINOPHEN 325 MG TAB PO PRN (08:21)
[2019-03-25] MEDS ORDERED: FAMOTIDINE 20 MG TAB PO SCH (08:30)
[2019-03-25] MEDS: LOSARTAN POTASSIUM 25 MG TAB PO SCH (09:00)
[2019-03-25] MEDS: PROPRANOLOL HCL 10 MG TAB PO SCH ×2 (09:00→16:27)
[2019-03-25] MEDS: CARBIDOPA/LEVODOPA 25/100 TAB PO SCH ×2 (09:00→16:27)
[2019-03-25] MEDS ORDERED: NICOTINE 7 MG PATCH TOP SCH (09:00)
[2019-03-25] MEDS: LEVOFLOXACIN 500 MG TAB PO SCH (09:37)
--- NOTE | 2019-03-25 10:53 | Diagnostic Imaging Report ---
EXAMINATION: CT scan of the chest without contrast. TECHNIQUE: Spiral CT images of the chest were performed from the lung apices to the level of the adrenal glands. No intravenous contrast was administered per referring physician request. Coronal and sagittal reformatted images were obtained. COMPARISON: CT chest PE protocol 02/27/2019 CLINICAL HISTORY:Shortness of breath DISCUSSION: ABSENCE OF INTRAVENOUS CONTRAST DECREASES SENSITIVITY FOR DETECTION OF FOCAL LESIONS AND VASCULAR PATHOLOGY. LINES/TUBES: None. LUNGS AND AIRWAYS: Unchanged 3 mm juxta pleural nodule anterior right upper lobe series 3 image 21. Cluster of centrilobular pulmonary nodules in the right upper lobe described on the comparison are less conspicuous. Patchy perihilar groundglass opacities have largely resolved. Right middle lobe and lingular linear scar is unchanged. Interval development of linear and bandlike foci of subsegmental atelectasis in the posterior basal segments of the lower lobes. PLEURA: No pneumothorax or pleural effusions. HEART AND MEDIASTINUM: The thyroid gland is normal. Atherosclerotic calcification of the thoracic aorta and [place] coronary arteries. No ectasia or aneurysmal dilatation. Pulmonary outflow tract is of normal caliber. No pericardial effusion. LYMPH NODES: No axillary, hilar, or mediastinal lymphadenopathy. ABDOMEN: Visualized portions of the liver, spleen, pancreas are unremarkable. BONES AND SOFT TISSUES: No osseous destructive lesions. Mild multilevel degenerative disc changes thoracic spine. Healed fracture lateral right eighth rib. No focal soft tissue abnormalities. IMPRESSION: Right upper lobe centrilobular pulmonary nodules described on the comparison are less conspicuous on the current study. Improved pulmonary edema. Interval development of subsegmental atelectasis in the posterior basal segments of the lower lobes. Unchanged 3 mm juxtapleural right upper lobe nodule, which may be assessed for stability by CT scan of the chest in one year if the patient is at high risk of malignancy. Signed by: Dr. Andrea Vazquez M.D. on 03/25/2019 10:50 AM
--- NOTE | 2019-03-25 15:16 | History and Physical ---
PRIMARY CARE PHYSICIAN: . CHIEF COMPLAINT: Coughing and shortness of breath. HISTORY: A 68-year-old female, obesity, smoker, came in with wheezing and acute exacerbation with acute bronchitis. She has not taken any nebulizer or inhaler medication at home. The patient is stating that she has been having some cough with some sputum production. The patient came to the hospital with some hypoxia. The patient is otherwise stable however. Nebulizer treatment was given and steroids as well. She is doing much better. She is pending for a CT scan of the chest. PAST MEDICAL HISTORY: Obesity, hypertension, possible Parkinson disease on carbidopa/levodopa with hand tremor, dyslipidemia, reflux history. PAST SURGICAL HISTORY: . SOCIAL HISTORY: The patient does smoke. She does not use alcohol. No recreational drugs. ALLERGIES: NO KNOWN ALLERGIES. HOME MEDICATIONS: Sinemet, losartan, Protonix, propranolol, and simvastatin. PHYSICAL EXAMINATION: VITAL SIGNS: Temperature is 97, blood pressure 122/59, pulse rate 72, respirations 18. GENERAL: The patient is not in acute distress. HEENT: Normocephalic, atraumatic. Sclerae anicteric. NECK: Supple grossly. PULMONARY: Bilateral coarse and rhonchi. CARDIOVASCULAR: S1, S2. Regular rate and rhythm. ABDOMEN: Morbidly obese. EXTREMITIES: No cyanosis or edema. NEUROLOGIC: No gross focal deficit. LABORATORY DATA: Sodium is 139, potassium 4.3, chloride 105, bicarb 24, BUN 13, creatinine 0.7, glucose 121. WBC is 9.9, hemoglobin 12.8, hematocrit 37.9, platelets is 227. IMPRESSION: 1. Acute bronchitis with possible early chronic obstructive pulmonary disease versus pneumonia. CT scan of chest still pending. 2. Multiple chronic baseline problems. PLAN: Continue with current medication, home medication. Prednisone. Doxycycline and add on Levaquin. CT of the chest without contrast. We will monitor the patient closely. MD JOHNNY Pratt/MANULE /[id number]
[2019-03-25] MEDS ORDERED: ENOXAPARIN SOD INJ 40 MG/0.4 ML SYR SC SCH (17:00)
--- NOTE | 2019-03-25 19:15 | NUR ---
REPORT GIVEN TO ONCOMING SHIFT.
--- NOTE | 2019-03-25 19:40 | NUR ---
RECEIVED PT SITTING ON THE BED AOX3 .DENIES PAIN .FAMILY AT THE BEDSIDE .CALL LIGHT WITH IN REACH .CONTINUE TO MONITOR
[2019-03-25] MEDS ORDERED: SIMVASTATIN 20 MG TAB PO SCH (21:00)
[2019-03-26] MEDS: DOXYCYCLINE HYCLATE TABLET 100 MG TAB PO SCH
[2019-03-26 00:04] VITALS: BP 111/61
[2019-03-26] MEDS: ALBUTEROL/IPRATROPIUM 3 ML NEB NEB SCH ×3 (03:10→10:14)
[2019-03-26 04:43] VITALS: BP 110/56
--- NOTE | 2019-03-26 06:41 | NUR ---
REPORT GIVEN TO THE ONCOMING NURSE
--- NOTE | 2019-03-26 06:42 | NUR ---
PT RESTED DURING THE NIGHT .NO ACUTE DISTRESS NOTED .ALL LIGHT WITH IN REACH .CONTINUE TO MONITOR
--- NOTE | 2019-03-26 07:05 | NUR ---
Walking rounds and report received. Patient is awake, alert with no complaints voiced. POC discussed in [place]. She was instructed to call for assistance as needed and verbalized understanding. AM assessment done. Tele #[phone], [email or web address]. Call duenas within reach.
--- NOTE | 2019-03-26 07:10 | NUR ---
Walking rounds and report received. Patient is awake, alert with no complaints voiced. POC discussed in [place]. Patient aware she is NPO for planned surgery. She was instructed to call for assistance as needed and verbalized understanding. AM assessment done. Call duenas within reach. Addendum: 03/26/19 at [id number] by Tete Valentine RN wrong patient
[2019-03-26] MEDS ORDERED: PANTOPRAZOLE SOD 40 MG TABEC PO SCH (07:30)
[2019-03-26 07:50] VITALS: BP 138/61
[2019-03-26] MEDS: LOSARTAN POTASSIUM 25 MG TAB PO SCH (08:23)
[2019-03-26] MEDS: LEVOFLOXACIN 500 MG TAB PO SCH (08:24)
[2019-03-26] MEDS: CARBIDOPA/LEVODOPA 25/100 TAB PO SCH (08:24)
[2019-03-26] MEDS: PROPRANOLOL HCL 10 MG TAB PO SCH (08:24)
[2019-03-26] MEDS: NICOTINE 7 MG PATCH TOP SCH (08:24)
[2019-03-26] MEDS: PREDNISONE 20 MG TAB PO SCH (08:24)
[2019-03-26] MEDS ORDERED: [UNRECOGNIZED DRUG - OTHER] (10:03)
[2019-03-26] MEDS ORDERED: medrol dose pak (10:05)
[2019-03-26] MEDS ORDERED: CHERATUSSIN AC118 ML PO (10:06)
[2019-03-26] MEDS ORDERED: ADVAIR 250-501 EACH INH (10:07)
[2019-03-26] MEDS ORDERED: LEVAQUIN500 MG PO (10:07)
[2019-03-26] MEDS ORDERED: duoneb INH (10:09)
[2019-03-26] MEDS ORDERED: PROAIR HFA INH8.5 GM INH (10:10)
--- NOTE | 2019-03-26 11:00 | NUR ---
Patient discharged home with written instructions and prescriptions. She verbalized understanding. IV dc'd, earlier, cath intact and small dressing applied. provided ride home.
== END 2019-03-26 10:59 | disposition home or self-care (01) ==
LOC: ER 08:19 → ERHOLD 11:24 → IMCU 12:46
PROVIDERS: ADMIT Internal Medicine; ATTEND Internal Medicine
DX: J20.9 Acute bronchitis, unspecified (principal); R25.1 Tremor, unspecified; E78.5 Hyperlipidemia, unspecified; F17.200 Nicotine dependence, unspecified, uncomplicated; J18.9 Pneumonia, unspecified organism; E66.9 Obesity, unspecified; Z68.35 Body mass index [BMI] 35.0-35.9, adult; I10 Essential (primary) hypertension
CPT/HCPCS: 36415 ×2; 71046; 71250; 80048 ×2; 82550 ×2; 82553 ×2; 83605; 83880; 84484 ×2; 85025 ×2; 85379; 87040; 90732; 93005; 94640 ×5; 99284; G0378 ×3; J1650; J2930; J7512 ×2; S0164

== ENCOUNTER 2022-04-14 14:23 | Emergency (ER) | payer MEDICARE ==
[~2022-04-14] VITALS: Ht 154.9 cm; Wt 94.3 kg
[~2022-04-14 14:23] MED LIST changes: +ADVAIR 250-501 EACH INH; +CHERATUSSIN AC118 ML PO; +PANTOPRAZOLE SO40 MG PO; +PROAIR HFA INH8.5 GM INH; +PROPRANOLOL HCL10 MG PO; +SINEMET 25-1001 EACH PO; +[UNRECOGNIZED DRUG - OTHER]; +duoneb INH; +medrol dose pak
[2022-04-14] MEDS ORDERED: ANAPROX DS550 MG PO (17:10)
[2022-04-14 17:19] VITALS: BP 117/64
== END 2022-04-14 17:20 | disposition home or self-care (01) ==
LOC: ER 14:42
DX: S93.601A Unspecified sprain of right foot, initial encounter (principal); S76.101A Unspecified injury of right quadriceps muscle, fascia and tendon, initial encounter; I10 Essential (primary) hypertension; E78.5 Hyperlipidemia, unspecified; K21.9 Gastro-esophageal reflux disease without esophagitis; W18.49XA Other slipping, tripping and stumbling without falling, initial encounter; Z79.899 Other long term (current) drug therapy
CPT/HCPCS: 99282

== ENCOUNTER 2022-10-10 10:23 | Observation (INO) | payer MEDICARE ==
[2022-10-07 11:37] LABS: BASOPHILS % 0.2 % (0.0-1.0); EOSINOPHILS # (AUTO) 0.2 (0.0-0.4); EOSINOPHILS % 2.5 % (0.0-6.0); HEMATOCRIT 44.3 % (34.2-44.1); HEMOGLOBIN 13.5 g/dL (12.0-16.0); LYMPHOCYTES % 31.1 % (18.0-39.1); MEAN CORPUSCULAR HEMOGLOBIN 31.4 pg (28-32); MEAN CORPUSCULAR HGB CONC 30.5 g/dL (31-35); MONOCYTES # (AUTO) 0.8 (0.2-0.8); MONOCYTES % 11.8 % (4.4-11.3); NEUTROPHILS # (AUTO) 3.5 (2.1-6.9); NEUTROPHILS % 54.2 % (38.7-80.0); PLATELET COUNT 251 x10e3/uL (140-360); RED CELL DISTRIBUTION WIDTH 11.9 % (11.7-14.4)
[2022-10-07 11:38] LABS: CLARITY,URINE CLEAR (CLEAR); COLOR,URINE YELLOW (YELLOW)
[2022-10-07 11:39] LABS: KETONES,URINE NEGATIVE (NEGATIVE); LEUKOCYTE ESTERASE ,URINE NEGATIVE (NEGATIVE); NITRITE,URINE NEGATIVE (NEGATIVE); PROTEIN,URINE DIPSTICK NEGATIVE (NEGATIVE); URINE UROBILINOGEN 0.2 mg/dL (0.2 - 1)
[2022-10-07 11:47] LABS: ANION GAP 15.3 mmol/L (8-16); BLOOD UREA NITROGEN 13 mg/dL (7-26); BUN/CREATININE RATIO 18 (6-25); CALCIUM 9.1 mg/dL (8.4-10.2); CARBON DIOXIDE 26 mmol/L (22-29); CHLORIDE 104 mmol/L (98-107); CREATININE, SERUM 0.73 mg/dL (0.57-1.11); GLUCOSE 96 mg/dL (74-118); POTASSIUM 4.3 mmol/L (3.5-5.1); SODIUM 141 mmol/L (136-145)
[~2022-10-10] VITALS: Ht 152.4 cm; Wt 88.0 kg
[~2022-10-10 10:23] MED LIST changes: +ANAPROX DS550 MG PO; +BENICAR20 MG PO; +DICYCLOMINE HCL20 MG PO; +ROPIVACAINE 246.25 MG, EPINEPHRINE HCL 1:1000 1ML 0.5 MG, CLONIDINE HCL 0.08 MG, KETORO... INJ ONE; +VITAMIN D3 COM1 EACH PO
[2022-10-10] MEDS ORDERED: CELECOXIB 200 MG CAP ONE (11:15)
[2022-10-10] MEDS ORDERED: GABAPENTIN 300 MG CAP ONE (11:15)
[2022-10-10] MEDS ORDERED: SODIUM CHLORIDE 0.9% 500ML 500 ML ONE (11:15)
[2022-10-10] MEDS ORDERED: DEXAMETHASONE SOD PHOS 10 MG/1 ML VIAL ONE (11:15)
[2022-10-10] MEDS ORDERED: CEFAZOLIN SODIUM 2 GM ONE (11:16)
[2022-10-10] MEDS ORDERED: Vancomycin IV 1,000 MG ONE (11:16)
[2022-10-10] MEDS ORDERED: TRANEXAMIC ACID 20 ML ONE (11:17)
[2022-10-10] MEDS ORDERED: ROPIVACAINE 0.5% 5 MG/ML 30 ML SDV ONE (12:52)
[2022-10-10] MEDS ORDERED: FENTANYL CITRATE/PF 100MCG/2 ML INJ ONE (13:04)
[2022-10-10] MEDS ORDERED: KETAMINE HCL INJ 50 MG/ML 10 ML VIAL ONE (13:04)
[2022-10-10] MEDS ORDERED: MIDAZOLAM HCL 2 MG/2 ML VIAL ONE (13:04)
[2022-10-10] MEDS ORDERED: PROPOFOL IV EMULSION 10 MG/ML 20 ML VIAL ONE (13:44)
[2022-10-10] MEDS ORDERED: HYDROMORPHONE 0.2MG/ML-SOD CHL 30ML PCA SYRINGE IV PRN (15:30)
[2022-10-10] MEDS ORDERED: ONDANSETRON HCL INJ 2MG/ML 2ML 2 MG/ML VIAL IV PRN (15:30)
[2022-10-10] MEDS ORDERED: NALOXONE HCL INJ 0.4 MG/ML AMP IV PRN (15:30)
[2022-10-10 16:48] VITALS: BP 129/74
[2022-10-10] MEDS: SODIUM CHLORIDE 0.9% 1000ML 1,000 ML IV SCH (17:52)
[2022-10-10] MEDS ORDERED: METOCLOPRAMIDE HCL 10 MG/2ML VIAL ONE (17:53)
[2022-10-10] MEDS ORDERED: DEXAMETHASONE SOD PHOS INJ 4 MG/ML SDV ONE (17:53)
[2022-10-10] MEDS ORDERED: FAMOTIDINE 20 MG/2 ML VIAL IV ONE (17:53)
[2022-10-10] MEDS ORDERED: LIDOCAINE HCL 2% JELLY 5 ML TUBE ONE (17:53)
[2022-10-10] MEDS ORDERED: GLYCOPYRROLATE INJ 0.2 MG/ML VIAL ONE (17:53)
[2022-10-10] MEDS ORDERED: LIDOCAINE HCL 2% LOCAL INJ 5 ML SDV VIAL INJ ONE (17:53)
[2022-10-10] MEDS ORDERED: SEVOFLURANE INHAL SOLN 250 ML PEN BTL ONE (17:53)
[2022-10-10] MEDS ORDERED: POVIDONE IODINE 0.05% 0.05 % ML PO ONE (17:53)
[2022-10-10] MEDS ORDERED: ONDANSETRON HCL INJ 2MG/ML 2ML 2 MG/ML VIAL ONE (17:53)
[2022-10-10] MEDS ORDERED: ACETAMINOPHEN 1000 MG/100 ML IV PRN (18:00)
[2022-10-10 18:32] VITALS: BP 129/74
[2022-10-10 18:36] VITALS: BP 129/74
[2022-10-10] MEDS ORDERED: ALBUTEROL SULFATE HFA 8GM INHALATION AEROSOL INH PRN (18:45)
[2022-10-10] MEDS ORDERED: ALBUTEROL SULF 0.083% NEB SOLN 3 ML NEB NEB PRN (19:15)
[2022-10-10] MEDS ORDERED: SIMVASTATIN 20 MG TAB PO SCH (21:00)
[2022-10-10] MEDS: DICYCLOMINE HCL 20 MG TAB PO SCH (21:39)
[2022-10-10 21:53] VITALS: BP 116/61
[2022-10-11] MEDS: SODIUM CHLORIDE 0.9% 1000ML 1,000 ML IV SCH (01:41)
[2022-10-11 05:39] LABS: HEMATOCRIT 38.2 % (34.2-44.1); HEMOGLOBIN 11.8 g/dL (12.0-16.0)
[2022-10-11 07:13] VITALS: BP 116/61
[2022-10-11 07:15] VITALS: BP 116/61
[2022-10-11] MEDS ORDERED: PANTOPRAZOLE SOD 40 MG TABEC PO SCH (07:30)
[2022-10-11 08:02] VITALS: BP 123/55
[2022-10-11] MEDS ORDERED: PROPRANOLOL HCL 10 MG TAB PO SCH (09:00)
[2022-10-11] MEDS ORDERED: GABAPENTIN 100 MG CAP PO PRN (09:00)
[2022-10-11] MEDS ORDERED: CELECOXIB 100 MG CAP PO SCH (09:00)
[2022-10-11] MEDS ORDERED: HYDROCODONE/APAP 7.5MG-325MG 1 EA TAB PO PRN (09:00)
[2022-10-11] MEDS ORDERED: OLMESARTAN 20 MG TAB PO SCH (09:00)
[2022-10-11] MEDS ORDERED: CARBIDOPA/LEVODOPA 25/100 TAB PO SCH (09:00)
[2022-10-11] MEDS: DICYCLOMINE HCL 20 MG TAB PO SCH (09:00)
[2022-10-11] MEDS ORDERED: ONDANSETRON HCL 4 MG ORAL DISINTEGRATING TAB SL PRN (10:00)
[2022-10-11 11:57] VITALS: BP 116/55
[2022-10-11] MEDS ORDERED: RIVAROXABAN 10 MG TABLET PO SCH (17:00)
== END 2022-10-11 13:43 | disposition home or self-care (01) ==
LOC: OR 10:23 → PACU V 15:27 → MED/SURG 16:48
PROVIDERS: ADMIT Specialist; ATTEND Specialist
DX: M17.11 Unilateral primary osteoarthritis, right knee (principal); I10 Essential (primary) hypertension; E78.5 Hyperlipidemia, unspecified; K21.9 Gastro-esophageal reflux disease without esophagitis; G20 Parkinson's disease; Z20.822 Contact with and (suspected) exposure to COVID-19; Z01.818 Encounter for other preprocedural examination
CPT/HCPCS: 0223U; 27447; 36415 ×2; 71046; 73560; 80048; 81003; 85014; 85018; 85025; 86850; 86900; 86920; 93005; 94799 ×2; 97110; 97116 ×2; 97161; 97530 ×2; C1713 ×4; C1776 ×2; G0378 ×2; J0171; J0690 ×2; J1100 ×2; J1885; J2001 ×2; J2250; J2405; J2704; J2765; J2795; J3010; J3370; J7030; J7040; S0164

== ENCOUNTER 2023-04-05 12:21 | Emergency (ER) | payer MEDICARE ==
[~2023-04-05] VITALS: Ht 154.9 cm; Wt 88.0 kg
[~2023-04-05 12:21] MED LIST changes: -ROPIVACAINE 246.25 MG, EPINEPHRINE HCL 1:1000 1ML 0.5 MG, CLONIDINE HCL 0.08 MG, KETORO... INJ ONE
[2023-04-05 12:25] VITALS: O2SAT 95
[2023-04-05] MEDS ORDERED: MECLIZINE HCL 12.5 MG TAB PO STA (12:57)
[2023-04-05 13:09] LABS: BASOPHILS % 0.4 % (0.0-1.0); EOSINOPHILS % 0.2 % (0.0-6.0); HEMATOCRIT 42.7 % (34.2-44.1); HEMOGLOBIN 14.4 g/dL (12.0-16.0); LYMPHOCYTES # (AUTO) 1.1 (1.0-3.2); LYMPHOCYTES % 12.6 % (18.0-39.1); MEAN CORPUSCULAR HEMOGLOBIN 31.6 pg (28-32); MEAN CORPUSCULAR HGB CONC 33.7 g/dL (31-35); MEAN CORPUSCULAR VOLUME 93.8 fL (81-99); MONOCYTES # (AUTO) 0.6 (0.2-0.8); MONOCYTES % 6.7 % (4.4-11.3); NEUTROPHILS # (AUTO) 6.7 (2.1-6.9); NEUTROPHILS % 79.7 % (38.7-80.0); PLATELET COUNT 235 x10e3/uL (140-360); RED BLOOD COUNT 4.55 x10e6/uL (3.6-5.1); RED CELL DISTRIBUTION WIDTH 12.8 % (11.7-14.4)
[2023-04-05 13:23] LABS: ALBUMIN 3.9 g/dL (3.5-5.0); ALBUMIN/GLOBULIN RATIO 1.1 (0.8-2.0); ALKALINE PHOSPHATASE 81 IU/L (40-150); ANION GAP 16.2 mmol/L (8-16); BLOOD UREA NITROGEN 17 mg/dL (7-26); BUN/CREATININE RATIO 21 (6-25); CARBON DIOXIDE 22 mmol/L (22-29); CHLORIDE 104 mmol/L (98-107); GLUCOSE 173 mg/dL (74-118); POTASSIUM 4.2 mmol/L (3.5-5.1); SODIUM 138 mmol/L (136-145)
[2023-04-05 13:43] LABS: ALANINE AMINOTRANSFERASE < 6 IU/L (0-55)
[2023-04-05 13:46] LABS: CLARITY,URINE SL CLOUDY (CLEAR); COLOR,URINE YELLOW (YELLOW); KETONES,URINE NEGATIVE (NEGATIVE); LEUKOCYTE ESTERASE ,URINE NEGATIVE (NEGATIVE); NITRITE,URINE NEGATIVE (NEGATIVE); PROTEIN,URINE DIPSTICK NEGATIVE (NEGATIVE); URINE UROBILINOGEN 0.2 mg/dL (0.2 - 1)
[2023-04-05 13:56] LABS: BACTERIA,URINE FEW /HPF; EPITHELIAL CELLS,URINE MODERATE /LPF; WBC,URINE (MAN) 0-5 /HPF (0-5)
[2023-04-05] MEDS ORDERED: MECLIZINE HCL12.5 MG PO (14:23)
== END 2023-04-05 14:47 | disposition home or self-care (01) ==
LOC: ER 12:32
DX: R42 Dizziness and giddiness (principal); I10 Essential (primary) hypertension; Z72.0 Tobacco use; J44.9 Chronic obstructive pulmonary disease, unspecified; K21.9 Gastro-esophageal reflux disease without esophagitis; E78.5 Hyperlipidemia, unspecified; M19.90 Unspecified osteoarthritis, unspecified site
CPT/HCPCS: 36415; 70450; 80053; 81001; 83880; 84484; 85025; 93005; 99284; J8597